=== PATIENT | male | born 1945 | race Caucasian/White ===

== ENCOUNTER → 2024-02-29 19:37 | Outpatient (REF) | payer OTHER, SELFPAY | LOC: MRI 3T 19:37 | PROVIDERS: ATTENDING PHYSICIAN Surgery; FAMILY PHYSICIAN Family Medicine | DX: C61 Malignant neoplasm of prostate (principal) | CPT/HCPCS: 72197; A9575 ==

== ENCOUNTER → 2025-04-26 07:39 | Outpatient (REF) | payer OTHER, SELFPAY | LOC: MRI 3T 07:39 | PROVIDERS: ATTENDING PHYSICIAN Surgery | DX: C61 Malignant neoplasm of prostate (principal) | CPT/HCPCS: 72197; A9575 ==